=== PATIENT | male | born 1945 | race Caucasian/White ===

== ENCOUNTER 2022-07-12 08:10 | Outpatient (CLI) | payer MEDICARE, OTHER | END 2022-07-12 08:11 | disposition home or self-care (01) | LOC: TBSIIMAG 08:10 | PROVIDERS: ATTEND Family Medicine | DX: M47.26 Other spondylosis with radiculopathy, lumbar region (principal); M47.25 Other spondylosis with radiculopathy, thoracolumbar region; M51.15 Intervertebral disc disorders with radiculopathy, thoracolumbar region; M48.061 Spinal stenosis, lumbar region without neurogenic claudication | CPT/HCPCS: 72148 ==

== ENCOUNTER 2022-07-20 11:14 | Outpatient (CLI) | payer MEDICARE, OTHER | END 2022-07-20 11:15 | disposition home or self-care (01) | LOC: BICRAD 11:14 | PROVIDERS: ATTEND Family Medicine | DX: M47.26 Other spondylosis with radiculopathy, lumbar region (principal); M43.16 Spondylolisthesis, lumbar region; M89.38 Hypertrophy of bone, other site | CPT/HCPCS: 72100 ==